=== PATIENT | male | born 1990 | race Caucasian/White ===

== ENCOUNTER 2018-12-23 22:15 | Emergency (ER) | payer OTHER ==
[~2018-12-23] VITALS: Ht 182.9 cm; Wt 93.8 kg
[2018-12-23 22:18] VITALS: Ht 182.9 cm; Wt 93.8 kg
[2018-12-23] MEDS ORDERED: ONDANSETRON (ODT) 4 MG TAB ODT STA (22:49)
[2018-12-23] MEDS ORDERED: ACETAMINOPHEN 325 MG TAB PO ONE (23:00)
[2018-12-24] MEDS ORDERED: NAPR-985 PO (00:25)
[2018-12-24 00:45] VITALS: BP 118/83; PULSE 88; RESP 18
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
== END 2018-12-24 00:46 | disposition home or self-care (01) ==
LOC: FTE 22:15
DX: S13.4XXA Sprain of ligaments of cervical spine, initial encounter (principal); R51 Headache; R11.10 Vomiting, unspecified; V49.49XA Driver injured in collision with other motor vehicles in traffic accident, initial encounter
CPT/HCPCS: 70450; 72125; Z7610